=== PATIENT | male | born 1995 | race Caucasian/White ===

== ENCOUNTER 2021-05-10 15:51 | Emergency (ER) | payer BC ==
--- NOTE | 2021-05-10 15:59 | EDM.PDOC ---
ED HPI GENERAL MEDICAL PROBLEM - General Chief Complaint: Chest Pain Stated Complaint: CHEST PAIN Time Seen by Provider: 05/10/21 15:55 Source of Information: Reports: Patient History Limitations: Reports: No Limitations - History of Present Illness INITIAL COMMENTS - FREE TEXT/NARRATIVE: 25-year-old male no past medical history presents for chest pain. Patient states that pain started around 3:20 PM. He describes the pain is severe and in his left anterior chest. It is worse when breathing out. He also notes shortness of breath. No history of cardiopulmonary problems. No pain or swelling in legs. Pain has been constant since onset. No nausea or vomiting. No abdominal pain. chest Pain Score (Numeric/FACES): 6 - Related Data Allergies Allergy/AdvReac Type Severity Reaction Status Date / Time latex Allergy Itching Verified 05/10/21 16:24 venom-honey bee Allergy Swelling Verified 05/10/21 16:24 [bee venom (honey bee)] Home Meds: Home Meds Cyclobenzaprine [Flexeril] 10 mg PO TID PRN #20 tab 05/10/21 [Rx] Ibuprofen [Motrin] 600 mg PO Q6H PRN #20 tab 05/10/21 [Rx] Past Medical History - Past Health History Medical/Surgical History: Denies Medical/Surgical History HEENT History: Reports: None Cardiovascular History: Reports: None Respiratory History: Reports: None Gastrointestinal History: Reports: None Genitourinary History: Reports: None Musculoskeletal History: Reports: None Neurological History: Reports: None Psychiatric History: Reports: None Endocrine/Metabolic History: Reports: None Hematologic History: Reports: None Immunologic History: Reports: None Oncologic (Cancer) History: Reports: None Dermatologic History: Reports: None - Infectious Disease History Infectious Disease History: Reports: Chicken Pox - Past Surgical History Head Surgeries/Procedures: Reports: None ED ROS GENERAL - Review of Systems Review Of Systems: Comprehensive ROS is negative, except as noted in HPI. ED EXAM, GENERAL - Physical Exam Exam: See Below Exam Limited By: No Limitations General Appearance: Alert, WD/WN, No Apparent Distress Ears: Hearing Grossly Normal Throat/Mouth: Normal Voice, No Airway Compromise Head: Atraumatic, Normocephalic Neck: Normal Inspection Respiratory/Chest: No Respiratory Distress, Lungs Clear, Normal Breath Sounds, No Accessory Muscle Use Cardiovascular: Normal Peripheral Pulses, Regular Rate, Rhythm, No Edema Extremities: Normal Inspection Neurological: Alert, Normal Cognition, Normal Gait Psychiatric: Normal Affect, Normal Mood Skin Exam: Warm, Dry, Intact, Normal Color #1 Interpretation EKG Date: 05/10/21 Time: 15:54 Rhythm: NSR Rate (Beats/Min): 69 [place]: Normal P-Wave: Present QRS: Normal ST-T: Normal QT: Normal RI/PQ Interval: 150 Comparison: NA - No Prior EKG EKG Interpretation Comments: Normal EKG Course - Vital Signs Last Recorded V/S: Last Vital Signs Temp 98.0 F 05/10/21 18:12 Pulse 54 L 05/10/21 19:20 Resp 16 05/10/21 19:20 BP 112/71 05/10/21 19:20 Pulse Ox 98 05/10/21 19:20 - Orders/Labs/Meds Labs: Laboratory Tests 05/10/21 05/10/21 05/10/21 Range/Units 16:08 16:08 16:56 WBC 5.85 (4.0-11.0) K/uL RBC 5.04 (4.50-5.90) M/uL Hgb 15.4 (13.0-17.0) g/dL Hct 44.6 (38.0-50.0) % MCV 88.5 (80.0-98.0) fL MCH 30.6 (27.0-32.0) pg MCHC 34.5 (31.0-37.0) g/dL RDW Std Deviation 41.3 (28.0-62.0) fl RDW Coeff of Tariq 13 (11.0-15.0) % Plt Count 193 (150-400) K/uL MPV 10.40 (7.40-12.00) fL Neut % (Auto) 50.8 (48.0-80.0) % Lymph % (Auto) 35.9 (16.0-40.0) % [place] % (Auto) 9.4 (0.0-15.0) % Eos % (Auto) 3.4 (0.0-7.0) % Baso % (Auto) 0.5 (0.0-1.5) % Neut # (Auto) 3.0 (1.4-5.7) K/uL Lymph # (Auto) 2.1 (0.6-2.4) K/uL [place] # (Auto) 0.6 (0.0-0.8) K/uL Eos # (Auto) 0.2 (0.0-0.7) K/uL Baso # (Auto) 0.0 (0.0-0.1) K/uL Nucleated RBC % 0.0 /100WBC Nucleated RBCs # 0 K/uL D-Dimer, Quantitative < 0.19 (0.0-0.50) mg/L FEU Sodium 141 (136-148) mmol/L Potassium 4.1 (3.5-5.1) mmol/L Chloride 103 (98-107) mmol/L Carbon Dioxide 27.9 (21.0-32.0) mmol/L BUN 11 (7.0-18.0) mg/dL Creatinine 1.3 (0.8-1.3) mg/dL Est Cr Clr Drug Dosing 86.38 mL/min Estimated GFR (MDRD) > 60.0 ml/min Glucose 96 (74-106) mg/dL Calcium 8.9 (8.5-10.1) mg/dL Total Bilirubin 0.4 (0.2-1.0) mg/dL AST 13 L (15-37) IU/L ALT 27 (14-63) IU/L Alkaline Phosphatase 70 (46-116) U/L Troponin I < 0.050 (0.000-0.056) ng/mL Total Protein 7.5 (6.4-8.2) g/dL Albumin 4.2 (3.4-5.0) g/dL Globulin 3.3 (2.6-4.0) g/dL Albumin/Globulin Ratio 1.3 (0.9-1.6) Lipase 53 L (73-393) U/L 05/10/21 Range/Units 18:30 WBC (4.0-11.0) K/uL RBC (4.50-5.90) M/uL Hgb (13.0-17.0) g/dL Hct (38.0-50.0) % MCV (80.0-98.0) fL MCH (27.0-32.0) pg MCHC (31.0-37.0) g/dL RDW Std Deviation (28.0-62.0) fl RDW Coeff of Tariq (11.0-15.0) % Plt Count (150-400) K/uL MPV (7.40-12.00) fL Neut % (Auto) (48.0-80.0) % Lymph % (Auto) (16.0-40.0) % [place] % (Auto) (0.0-15.0) % Eos % (Auto) (0.0-7.0) % Baso % (Auto) (0.0-1.5) % Neut # (Auto) (1.4-5.7) K/uL Lymph # (Auto) (0.6-2.4) K/uL [place] # (Auto) (0.0-0.8) K/uL Eos # (Auto) (0.0-0.7) K/uL Baso # (Auto) (0.0-0.1) K/uL Nucleated RBC % /100WBC Nucleated RBCs # K/uL D-Dimer, Quantitative (0.0-0.50) mg/L FEU Sodium (136-148) mmol/L Potassium (3.5-5.1) mmol/L Chloride (98-107) mmol/L Carbon Dioxide (21.0-32.0) mmol/L BUN (7.0-18.0) mg/dL Creatinine (0.8-1.3) mg/dL Est Cr Clr Drug Dosing mL/min Estimated GFR (MDRD) ml/min Glucose (74-106) mg/dL Calcium (8.5-10.1) mg/dL Total Bilirubin (0.2-1.0) mg/dL AST (15-37) IU/L ALT (14-63) IU/L Alkaline Phosphatase (46-116) U/L Troponin I < 0.050 (0.000-0.056) ng/mL Total Protein (6.4-8.2) g/dL Albumin (3.4-5.0) g/dL Globulin (2.6-4.0) g/dL Albumin/Globulin Ratio (0.9-1.6) Lipase (73-393) U/L Meds: Medications Discontinued Medications Generic Name Dose Route Start Last Admin Trade Name Freq PRN Reason Stop Dose Admin Aspirin 324 mg 05/10/21 16:05 05/10/21 16:13 Aspirin 81 Mg Tab.Chew PO 05/10/21 16:06 324 mg ONETIME ONE Administration Al Hydroxide/Mg Hydroxide 15 0 ml 05/10/21 16:05 05/10/21 16:13 ml/ Lidocaine HCl 5 ml PO 05/10/21 16:06 1 each ONETIME ONE Administration Cyclobenzaprine HCl 10 mg 05/10/21 16:49 05/10/21 17:13 Cyclobenzaprine 10 Mg Tab PO 05/10/21 16:50 10 mg ONETIME ONE Administration Sodium Chloride 1,000 mls @ 999 mls/hr 05/10/21 16:05 05/10/21 16:13 Normal Saline IV 05/10/21 17:05 999 mls/hr .Bolus ONE Administration Sodium Chloride 10 ml 05/10/21 16:05 05/10/21 16:13 Sodium Chloride 0.9% 10 Ml Syringe FLUSH 10 ml ASDIRECTED PRN Administration Keep Vein Open Sodium Chloride 2.5 ml 05/10/21 16:05 05/10/21 16:14 Sodium Chloride 0.9% 2.5 Ml Syringe FLUSH 2.5 ml ASDIRECTED PRN Administration Keep Vein Open - Re-Assessments/Exams Free Text/Narrative Re-Assessment/Exam: 05/10/21 16:07 EKG is normal. Will get labs and chest x-ray. Will give aspirin and GI cocktail. Will reassess. 05/10/21 16:50 Patient states pain is minimally improved. He is now stating that it hurts worse when he breathes then on the left side. Will add a D-dimer to rule out pulmonary embolism. Will trial muscle relaxant. 05/10/21 17:58 Patient is feeling better after muscle relaxant. We will follow that repeat troponin and anticipate discharge with muscle relaxant and NSAID. Departure - Departure Time of Disposition: 19:18 Disposition: Home, Self-Care 01 Condition: Good Clinical Impression: Chest pain Qualifiers: Chest pain type: unspecified Qualified Code(s): R07.9 - Chest pain, unspecified - Discharge Information Prescriptions: Cyclobenzaprine [Flexeril] 10 mg PO TID PRN #20 tab PRN Reason: Muscle Spasm - Painful Ibuprofen [Motrin] 600 mg PO Q6H PRN #20 tab PRN Reason: Pain Instructions: Nonspecific Chest Pain, Adult Referrals: PCP,None [Primary Care Provider] - Forms: ED Department Discharge Additional Instructions: Your labs do not show any evidence of damage to your heart or blood clot in your lungs. Your chest x-ray is normal. It is uncertain what is causing your pain but you seem to respond to muscle relaxant. Sometimes people get inflammation around the lining of the lungs or in the muscles in between the ribs that can cause chest pain worse with breathing like you were experiencing. I have sent a prescription for high-dose Motrin as well as Flexeril which is a muscle relaxant to your pharmacy. You can try these over the next couple of days. You should follow-up with your primary care physician for reassessment. If your chest pain worsens or you have difficulty breathing then you should come back to the emergency department for reassessment. The following information is given to patients seen in the emergency department who are being discharged to home. This information is to outline your options for follow-up care. We provide all patients seen in our emergency department with a follow-up referral. The need for follow-up, as well as the timing and circumstances, are variable depending upon the specifics of your emergency department visit. If you don't have a primary care physician on staff, we will provide you with a referral. We always advise you to contact your personal physician following an emergency department visit to inform them of the circumstance of the visit and for follow-up with them and/or the need for any referrals to a consulting specialist. The emergency department will also refer you to a specialist when appropriate. This referral assures that you have the opportunity for follow-up care with a specialist. All of these measure are taken in an effort to provide you with optimal care, which includes your follow-up. Under all circumstances we always encourage you to contact your private physician who remains a resource for coordinating your care. When calling for follow-up care, please make the office aware that this follow-up is from your recent emergency room visit. If for any reason you are refused follow-up, please contact the [facility] Emergency Department at and asked to speak to the emergency department charge nurse. Please follow up with your primary care physician. If you do not have a primary care physician, see below: [facility] [address] [place] [address], [place] [id number] [facility] [address] [place] [id number] [facility] [address] [place] [id number]
[2021-05-10] MEDS ORDERED: Sodium Chloride 0.9% 1,000 ML IV ONE (16:05)
[2021-05-10] MEDS ORDERED: Aspirin 81 MG Tab.Chew PO ONE (16:05)
[2021-05-10] MEDS ORDERED: Sodium Chloride 0.9% 2.5 ML Syringe FLUSH PRN (16:05)
[2021-05-10] MEDS ORDERED: Alum Hydrox/Mag Hydrox/Simeth 15 ML, Lidocaine 2% 5 ML PO ONE ×2 (16:05)
[2021-05-10] MEDS ORDERED: Sodium Chloride 0.9% 10 ML Syringe FLUSH PRN (16:05)
[2021-05-10 16:37] LABS: BLOOD UREA NITROGEN,BUN 11 mg/dL (7.0-18.0); CARBON DIOXIDE,CO2 27.9 mmol/L (21.0-32.0); CHLORIDE,CL 103 mmol/L (98-107); GLUCOSE RANDOM 96 mg/dL (74-106); LIPASE 53 U/L (73-393); POTASSIUM,K 4.1 mmol/L (3.5-5.1); SODIUM,NA 141 mmol/L (136-148)
[2021-05-10] MEDS ORDERED: Cyclobenzaprine 10 MG Tab PO ONE (16:49)
--- NOTE | 2021-05-10 17:07 | CR ---
INDICATION: Left anterior chest pain and SOB TECHNIQUE: Chest 1 view. COMPARISON: None. FINDINGS: Cardiovascular and mediastinum: Heart size and vasculature are normal in caliber and appearance. Mediastinum is within normal limits. Lungs and pleural space: Lungs are clear. No sign of infiltrate or mass. No sign of pleural effusion. No pneumothorax. Bones and soft tissues: No significant findings. IMPRESSION: Unremarkable chest. Dictated by: Jared Mccormick MD @ 05/10/2021 17:06:45 (Electronically Signed)
[2021-05-10 22:56] VITALS: BP 112/71; PULSE 54
== END 2021-05-10 19:20 | disposition home or self-care (01) ==
LOC: MW.ED 15:51
DX: R07.89 Other chest pain (principal); Z91.040 Latex allergy status; Z91.030 Bee allergy status
CPT/HCPCS: 36415; 71045; 80053; 83690; 84484; 85025; 85379; 93005; 99285; A9270; J7030; 93010; 99283